=== PATIENT | male | born 1990 | race Two or more races ===

== ENCOUNTER 2021-03-20 18:33 | Inpatient (IN) | payer MEDICAID ==
[~2021-03-20] VITALS: Ht 170.2 cm; Wt 124.6 kg
[2021-03-20 23:25] LABS: Basophils # (auto) 0.1 10 ^3/uL (0-0.2); Eosinophils # (auto) 0.3 10 ^3/uL (0-0.8); Eosinophils % (auto) 2.4 % (0.0-7.0); Hematocrit 39.7 % (41.0-53.0); Hemoglobin 12.6 g/dL (13.5-17.5); Lymphocytes # (auto) 2.3 10 ^3/uL (0.4-5.4); Lymphocytes % (auto) 21.1 % (10.0-50.0); Mean Corpuscular Hemoglobin 28.2 pg (28.0-32.0); Mean Corpuscular Hgb Conc. 31.9 g/dL (32.0-36.0); Mean Corpuscular Volume 88.3 fL (80.0-100.0); Monocytes % (auto) 9.2 % (0.0-12.0); Neutrophils # (auto) 7.3 10 ^3/uL (1.6-8.6); Neutrophils % (auto) 66.3 % (37.0-80.0); Red Blood Cells 4.49 10^6/uL (4.5-5.90); Red Cell Distribution Width 17.2 % (11.8-14.3)
[2021-03-20 23:43] LABS: Albumin 3.4 g/dL (3.4-5.0); Calcium 8.2 mg/dL (8.5-10.1); Magnesium 2.8 mg/dL (1.6-2.6); Potassium 4.3 mmol/L (3.5-5.1)
[2021-03-20 23:49] LABS: BUN/Creatinine Ratio 16.3; Bilirubin, Total 0.8 mg/dL (0.2-1.0); Total Protein 6.8 g/dL (6.4-8.2)
[2021-03-21] MEDS ORDERED: IOHEXOL 350 MG/ML 100ML IJ ONE (01:14)
[2021-03-21] MEDS ORDERED: ASPirin 325 MG TAB PO ONE (04:15)
[2021-03-21 08:14] LABS: Urine Bacteria NONE SEEN /hpf (None Seen); Urine Blood Negative /uL (Negative); Urine Mucus FEW (None Seen); Urine WBC 2 /hpf (0 - 3)
[2021-03-21] MEDS ORDERED: MORPHINE SULFATE INJECTION 2 MG/ML SYRG IV PRN (10:00)
[2021-03-21] MEDS ORDERED: HYDROcodone-ACET 5/325MG TAB PO PRN (10:00)
[2021-03-21] MEDS ORDERED: ACETAMINOPHEN 325 MG TAB PO PRN (10:00)
[2021-03-21] MEDS ORDERED: ENOXAPARIN SOD 40 MG/0.4 ML SYRINGE SC SCH (10:00)
[2021-03-21] MEDS ORDERED: ONDANSETRON HCL 4 MG/2 ML VIAL IV PRN (10:00)
[2021-03-21] MEDS ORDERED: MORPHINE SULFATE 4 MG/ML SYR/VIAL IV PRN (10:00)
[2021-03-21] MEDS ORDERED: NITROGLYCERIN 0.4 MG SL TAB SL PRN (10:00)
[2021-03-21 13:00] VITALS: BP 117/58
[2021-03-21 13:20] VITALS: BP 117/58
[2021-03-21 13:58] LABS: Amphetamine Screen, Urine NEGATIVE (NEGATIVE); Barbiturate Scree,Urine NEGATIVE (NEGATIVE); Benzodiazephine Screen, Urine NEGATIVE (NEGATIVE); Cannabinoid Screen, Urine NEGATIVE (NEGATIVE); Cocaine Screen, Urine NEGATIVE (NEGATIVE); Opiate Scree,Urine NEGATIVE (NEGATIVE); Phencyclidine Screen, Urine NEGATIVE (NEGATIVE)
[2021-03-21] MEDS ORDERED: INFLUENZA QUAD 2021-2022 0.5 ML SYRG IM ONE (14:00)
[2021-03-21] MEDS: METOPROLOL TARTRATE 25 MG TAB PO SCH ×2 (14:23→22:15)
[2021-03-21] MEDS: ENOXAPARIN SOD 120 MG/0.8 ML SYRINGE SC SCH ×2 (14:24→22:15)
[2021-03-21] MEDS ORDERED: OPTISON 3ml Vial for INJ IV ONE (14:47)
[2021-03-21 17:00] VITALS: BP 125/73
[2021-03-21] MEDS: FUROSEMIDE 40 MG/4 ML VIAL IV SCH (18:14)
[2021-03-21 22:00] VITALS: BP 125/100
[2021-03-22 05:00] VITALS: BP 87/61
[2021-03-22] MEDS: FUROSEMIDE 40 MG/4 ML VIAL IV SCH ×2 (06:25→17:59)
[2021-03-22 07:53] LABS: Potassium 4.2 mmol/L (3.5-5.1)
[2021-03-22 07:54] LABS: Basophils # (auto) 0 10 ^3/uL (0-0.2); Basophils % (auto) 0.3 % (0.0-2.0); Eosinophils # (auto) 0.3 10 ^3/uL (0-0.8); Hematocrit 39.8 % (41.0-53.0); Hemoglobin 13.1 g/dL (13.5-17.5); Lymphocytes % (auto) 22.9 % (10.0-50.0); Mean Corpuscular Hemoglobin 28.7 pg (28.0-32.0); Mean Corpuscular Hgb Conc. 32.8 g/dL (32.0-36.0); Mean Corpuscular Volume 87.4 fL (80.0-100.0); Monocytes # (auto) 0.7 10 ^3/uL (0-1.3); Monocytes % (auto) 8.5 % (0.0-12.0); Neutrophils # (auto) 5.7 10 ^3/uL (1.6-8.6); Neutrophils % (auto) 65.3 % (37.0-80.0); Nucleated Red Blood Cells % 0.1 %; Red Blood Cells 4.55 10^6/uL (4.5-5.90); Red Cell Distribution Width 17.1 % (11.8-14.3); White Blood Cell 8.7 10^3/uL (4.4-10.8)
[2021-03-22 08:00] VITALS: BP 111/74
[2021-03-22 08:15] LABS: Albumin 3.5 g/dL (3.4-5.0); BUN/Creatinine Ratio 18.2; Bilirubin, Total 1.4 mg/dL (0.2-1.0); Calcium 8.8 mg/dL (8.5-10.1); Total Protein 6.6 g/dL (6.4-8.2)
[2021-03-22] MEDS: ASPirin-EC 81 mg tab PO SCH (09:39)
[2021-03-22] MEDS: METOPROLOL TARTRATE 25 MG TAB PO SCH ×2 (09:39→22:26)
[2021-03-22] MEDS: ENOXAPARIN SOD 120 MG/0.8 ML SYRINGE SC SCH ×2 (09:39→22:26)
[2021-03-22 12:00] VITALS: BP 117/56
[2021-03-22 16:00] VITALS: BP 105/76
[2021-03-22 22:00] VITALS: BP 95/58
[2021-03-22 22:20] VITALS: BP 100/71
[2021-03-23 05:00] VITALS: BP_SYST 113; BP_SYST 140; BP_DIAS 65; BP_DIAS 76
[2021-03-23] MEDS: FUROSEMIDE 40 MG/4 ML VIAL IV SCH ×2 (05:49→17:50)
[2021-03-23 08:50] VITALS: BP 90/52
[2021-03-23] MEDS: ENOXAPARIN SOD 120 MG/0.8 ML SYRINGE SC SCH ×2 (09:57→21:40)
[2021-03-23] MEDS: ASPirin-EC 81 mg tab PO SCH (09:57)
[2021-03-23] MEDS: METOPROLOL TARTRATE 25 MG TAB PO SCH ×2 (09:58→21:42)
[2021-03-23] MEDS: ENALAPRIL MALEATE 2.5 MG TAB PO SCH (09:58)
[2021-03-23 12:45] VITALS: BP 110/87
[2021-03-23 13:39] LABS: Calcium 9.3 mg/dL (8.5-10.1); Magnesium 2.9 mg/dL (1.6-2.6); Potassium 4.3 mmol/L (3.5-5.1)
[2021-03-23 13:41] LABS: BUN/Creatinine Ratio 15.5
[2021-03-23 18:07] VITALS: BP 135/47
[2021-03-23] MEDS ORDERED: ZOLPIDEM TARTRATE 5 MG TAB PO PRN ×2 (18:30→18:45)
[2021-03-23 21:12] VITALS: BP 92/52
[2021-03-24 05:00] VITALS: BP 103/60
[2021-03-24] MEDS: FUROSEMIDE 40 MG/4 ML VIAL IV SCH ×2 (06:09→17:43)
[2021-03-24 08:35] VITALS: BP 94/58
[2021-03-24] MEDS: METOPROLOL TARTRATE 25 MG TAB PO SCH ×2 (09:51→21:28)
[2021-03-24] MEDS: ASPirin-EC 81 mg tab PO SCH (09:51)
[2021-03-24] MEDS: ENOXAPARIN SOD 120 MG/0.8 ML SYRINGE SC SCH ×2 (09:52→21:25)
[2021-03-24] MEDS: ENALAPRIL MALEATE 2.5 MG TAB PO SCH (09:52)
[2021-03-24 12:25] VITALS: BP 102/48
[2021-03-24 14:35] VITALS: BP 104/60
[2021-03-24] MEDS ORDERED: METOPROLOL TARTRATE 1MG/1ML-5ML VIAL IV PRN (19:00)
[2021-03-24 22:00] VITALS: BP 105/54
[2021-03-25 05:00] VITALS: BP 105/78
[2021-03-25] MEDS: FUROSEMIDE 40 MG/4 ML VIAL IV SCH ×2 (06:06→17:31)
[2021-03-25 09:00] VITALS: BP 99/51
[2021-03-25] MEDS: METOPROLOL TARTRATE 25 MG TAB PO SCH (09:17)
[2021-03-25] MEDS: ASPirin-EC 81 mg tab PO SCH (09:17)
[2021-03-25] MEDS: ENOXAPARIN SOD 120 MG/0.8 ML SYRINGE SC SCH (09:17)
[2021-03-25] MEDS: ENALAPRIL MALEATE 2.5 MG TAB PO SCH (09:18)
[2021-03-25 13:00] VITALS: BP 147/72
[2021-03-25 16:38] VITALS: BP_SYST 115; BP_SYST 97; BP_DIAS 56; BP_DIAS 57
== END 2021-03-25 21:45 | disposition home or self-care (01) | DRG 201 ==
LOC: ER 18:33 → TELE 03-21 09:57 → TELE-WESTW 03-21 12:47
PROVIDERS: ADMIT Internal Medicine; ATTEND Internal Medicine Geriatric Medicine
DX: I48.0 Paroxysmal atrial fibrillation (principal); I50.23 Acute on chronic systolic (congestive) heart failure; I11.0 Hypertensive heart disease with heart failure; I42.9 Cardiomyopathy, unspecified; D72.829 Elevated white blood cell count, unspecified; E66.01 Morbid (severe) obesity due to excess calories; R59.0 Localized enlarged lymph nodes; F17.210 Nicotine dependence, cigarettes, uncomplicated; Z20.822 Contact with and (suspected) exposure to COVID-19; Z59.00 Homelessness unspecified; Z68.41 Body mass index [BMI] 40.0-44.9, adult; Z82.49 Family history of ischemic heart disease and other diseases of the circulatory system; Z83.3 Family history of diabetes mellitus; Z71.6 Tobacco abuse counseling; Z23 Encounter for immunization
CPT/HCPCS: 36415; 71045; 71275; 80048; 80053; 80307; 81001; 83735; 83880; 84443; 84484; 85025; 85379; 87426; 93005; 93306; 96374; 96375; G0378; Q9956

== ENCOUNTER 2021-08-16 09:17 | Inpatient (IN) | payer MEDICAID ==
[~2021-08-16] VITALS: Ht 170.2 cm; Wt 121.8 kg
[2021-08-16 10:27] LABS: Albumin 2.7 g/dL (3.4-5.0); Calcium 8.3 mg/dL (8.5-10.1); Magnesium 1.8 mg/dL (1.6-2.6); Potassium 4.5 mmol/L (3.5-5.1)
[2021-08-16 10:31] LABS: BUN/Creatinine Ratio 22.3; Bilirubin, Total 1.2 mg/dL (0.2-1.0); Total Protein 6.5 g/dL (6.4-8.2)
[2021-08-16 10:35] LABS: INR 1.27 (0.9-1.15); Partial Thromboplastin Time 23.5 sec (23.6-33.0)
[2021-08-16] MEDS ORDERED: FUROSEMIDE 40 MG/4 ML VIAL IV ONE (10:45)
[2021-08-16] MEDS ORDERED: dilTIAZem 25 MG/5 ML VIAL IV ONE (10:45)
[2021-08-16 11:43] LABS: Basophils # (auto) 0 10 ^3/uL (0-0.2); Basophils % (auto) 0.5 % (0.0-2.0); Eosinophils # (auto) 0.1 10 ^3/uL (0-0.8); Eosinophils % (auto) 0.8 % (0.0-7.0); Hematocrit 36.7 % (41.0-53.0); Hemoglobin 11.6 g/dL (13.5-17.5); Lymphocytes # (auto) 1.7 10 ^3/uL (0.4-5.4); Lymphocytes % (auto) 16.9 % (10.0-50.0); Mean Corpuscular Hemoglobin 27.1 pg (28.0-32.0); Mean Corpuscular Hgb Conc. 31.6 g/dL (32.0-36.0); Mean Corpuscular Volume 85.7 fL (80.0-100.0); Monocytes # (auto) 1.2 10 ^3/uL (0-1.3); Neutrophils # (auto) 6.8 10 ^3/uL (1.6-8.6); Neutrophils % (auto) 69.8 % (37.0-80.0); Red Blood Cells 4.28 10^6/uL (4.5-5.90); Red Cell Distribution Width 20.3 % (11.8-14.3); White Blood Cell 9.8 10^3/uL (4.4-10.8)
[2021-08-16] MEDS: MAGNESIUM SULFATE 1GM/100ML 100 ML IV SCH ×2 (13:25→16:23)
[2021-08-16] MEDS ORDERED: IOHEXOL 350 MG/ML 100ML IJ ONE (13:40)
[2021-08-16] MEDS ORDERED: AMIODARONE 450mg/250ml AE 250 ML IV SCH (17:15)
[2021-08-16] MEDS ORDERED: AMIODARONE HCL 150 MG in D5W 5% 100 ML IV ONE (17:15)
[2021-08-16] MEDS ORDERED: NITROGLYCERIN 0.4 MG SL TAB SL PRN (17:30)
[2021-08-16] MEDS ORDERED: HYDROcodone-ACET 5/325MG TAB PO PRN (17:30)
[2021-08-16] MEDS ORDERED: ONDANSETRON HCL 4 MG/2 ML VIAL IV PRN (17:30)
[2021-08-16] MEDS ORDERED: MORPHINE SULFATE INJ 2 MG/ml SYRG IV PRN (17:30)
[2021-08-16] MEDS: FUROSEMIDE 40 MG/4 ML VIAL IV SCH (18:01)
[2021-08-16 20:00] VITALS: BP 98/72
[2021-08-16 20:01] VITALS: BP 125/86
[2021-08-16 20:31] VITALS: BP 142/73
[2021-08-16 20:54] LABS: Alcohol, Urine < 3.0 mg/dL (0-10); Amphetamine Screen, Urine NEGATIVE (NEGATIVE); Barbiturate Scree,Urine NEGATIVE (NEGATIVE); Benzodiazephine Screen, Urine NEGATIVE (NEGATIVE); Cannabinoid Screen, Urine NEGATIVE (NEGATIVE); Cocaine Screen, Urine NEGATIVE (NEGATIVE); Opiate Scree,Urine NEGATIVE (NEGATIVE); Phencyclidine Screen, Urine NEGATIVE (NEGATIVE)
[2021-08-16 21:01] VITALS: BP 134/68
[2021-08-16] MEDS: ENOXAPARIN SOD 100 MG/1 ML SYRINGE SC SCH (21:05)
[2021-08-16] MEDS: METOPROLOL TARTRATE 25 MG TAB PO SCH (21:05)
[2021-08-16] MEDS: POTASSIUM CHL 20 Meq TABLET PO SCH (21:08)
[2021-08-16 22:01] VITALS: BP 123/97
[2021-08-16 23:01] VITALS: BP 132/87
[2021-08-17] VITALS (34 sets, daily range): BP systolic 90–143; BP diastolic 55–108
[2021-08-17 01:32] LABS: Urine Bacteria NONE SEEN /hpf (None Seen); Urine Blood Negative /uL (Negative); Urine Specific Gravity 1.018 (1.001-1.035); Urine WBC 1 /hpf (0 - 3)
[2021-08-17] MEDS: AMIODARONE 450mg/250ml AE 250 ML IV SCH ×3 (02:56→21:00)
[2021-08-17 04:55] LABS: INR 1.34 (0.9-1.15); Partial Thromboplastin Time 30.3 sec (23.6-33.0)
[2021-08-17 04:58] LABS: Calcium 8.2 mg/dL (8.5-10.1)
[2021-08-17 05:02] LABS: BUN/Creatinine Ratio 19.2
[2021-08-17] MEDS: FUROSEMIDE 40 MG/4 ML VIAL IV SCH ×2 (06:05→18:33)
[2021-08-17] MEDS: NITROGLYCERIN 2% OINT 1GM PKG TD SCH ×4 (06:36→11:30)
[2021-08-17] MEDS: NITROGLYCERIN 2% OINT 1GM PKG TD ONE (06:36)
[2021-08-17] MEDS ORDERED: OPTISON 3ml Vial for INJ IV ONE ×2 (10:17→10:30)
[2021-08-17] MEDS: POTASSIUM CHL 20 Meq TABLET PO SCH ×2 (10:29→21:54)
[2021-08-17] MEDS: FAMOTIDINE 20 MG TAB PO SCH (10:29)
[2021-08-17] MEDS: ASPirin-EC 81 mg tab PO SCH (10:29)
[2021-08-17] MEDS: METOPROLOL TARTRATE 25 MG TAB PO SCH ×3 (10:29→21:54)
[2021-08-17] MEDS: ENOXAPARIN SOD 100 MG/1 ML SYRINGE SC SCH (10:30)
[2021-08-17] MEDS ORDERED: SACU1TAB PO (18:58)
[2021-08-17] MEDS ORDERED: RIVA20TA PO (18:58)
[2021-08-17] MEDS ORDERED: METO25TA5 PO (18:58)
[2021-08-17] MEDS ORDERED: FURO40TA4 PO (18:58)
[2021-08-17] MEDS ORDERED: AMIO200T33 PO (18:58)
[2021-08-17] MEDS ORDERED: SPIR25TA8 PO (18:58)
[2021-08-17] MEDS ORDERED: DIVA250T4 PO (18:58)
[2021-08-17] MEDS ORDERED: ARIP1TAB7 PO (18:58)
[2021-08-17] MEDS ORDERED: NICOTINE 21MG/24 HR TOPICAL PATCH TD ONE (19:45)
[2021-08-17] MEDS ORDERED: IOHEXOL 300 MG/ML 100ML BOTTLE IJ ONE (20:47)
[2021-08-17] MEDS: APIXABAN 5 MG TAB PO SCH (21:54)
[2021-08-17] MEDS: SACUBITRIL-VALSARTAN 24mg/26mg TAB PO SCH (22:00)
[2021-08-18] VITALS (53 sets, daily range): BP systolic 95–155; BP diastolic 44–99
[2021-08-18] MEDS: AMIODARONE 450mg/250ml AE 250 ML IV SCH ×3 (04:30→07:20)
[2021-08-18 05:17] LABS: BUN/Creatinine Ratio 15.8; Magnesium 1.9 mg/dL (1.6-2.6); Potassium 3.7 mmol/L (3.5-5.1)
[2021-08-18] MEDS: FUROSEMIDE 40 MG/4 ML VIAL IV SCH ×2 (05:30→18:03)
[2021-08-18] MEDS: NICOTINE 21MG/24 HR TOPICAL PATCH TD SCH (10:10)
[2021-08-18] MEDS: POTASSIUM CHL 20 Meq TABLET PO SCH ×2 (10:11→21:24)
[2021-08-18] MEDS: FAMOTIDINE 20 MG TAB PO SCH (10:11)
[2021-08-18] MEDS: APIXABAN 5 MG TAB PO SCH ×2 (10:11→21:24)
[2021-08-18] MEDS: ASPirin-EC 81 mg tab PO SCH (10:12)
[2021-08-18] MEDS: METOPROLOL TARTRATE 25 MG TAB PO SCH ×2 (10:12→21:23)
[2021-08-18] MEDS ORDERED: FERR325T20 PO (11:49)
[2021-08-18] MEDS ORDERED: APIX5TAB PO (11:49)
[2021-08-18] MEDS ORDERED: ENAL2.5T11 PO (11:49)
[2021-08-18] MEDS ORDERED: CARV12.544 PO (11:49)
[2021-08-18] MEDS ORDERED: ASPI-543 PO (11:49)
[2021-08-18] MEDS ORDERED: AMOX500T86 PO (11:49)
[2021-08-18] MEDS ORDERED: ATOR20TA50 PO (11:49)
[2021-08-18] MEDS ORDERED: PANT40TA2 PO (11:49)
[2021-08-18] MEDS: SACUBITRIL-VALSARTAN 24mg/26mg TAB PO SCH ×2 (12:42→22:00)
[2021-08-18] MEDS ORDERED: PANTOPRAZOLE 40 MG/10 ML VIAL INJ IV ONE (12:45)
[2021-08-18] MEDS ORDERED: SUCRALFATE 1 GM/10 ML ORAL SUSP GT ONE (12:45)
[2021-08-18] MEDS ORDERED: LACTULOSE 20Gm/30ML SOLN PO ONE (13:30)
[2021-08-18] MEDS ORDERED: MORPHINE SULFATE INJ 2 MG/ml SYRG ONE (13:30)
[2021-08-18] MEDS ORDERED: THIAMINE 100mg/ml INJ (200mg/2ml VIAL) IV ONE (13:30)
[2021-08-18] MEDS ORDERED: MORPHINE SULFATE INJ 2 MG/ml SYRG IV PRN (13:30)
[2021-08-18] MEDS: SUCRALFATE 1 GM/10 ML ORAL SUSP GT SCH ×2 (16:55→21:23)
[2021-08-19] VITALS (15 sets, daily range): BP systolic 102–151; BP diastolic 52–79
[2021-08-19] MEDS: AMIODARONE 450mg/250ml AE 250 ML IV SCH ×2 (01:41→12:55)
[2021-08-19 04:32] LABS: Basophils # (auto) 0.1 10 ^3/uL (0-0.2); Basophils % (auto) 0.6 % (0.0-2.0); Eosinophils # (auto) 0.2 10 ^3/uL (0-0.8); Eosinophils % (auto) 1.4 % (0.0-7.0); Hematocrit 33.9 % (41.0-53.0); Hemoglobin 11.1 g/dL (13.5-17.5); Lymphocytes % (auto) 15.1 % (10.0-50.0); Mean Corpuscular Hemoglobin 27.3 pg (28.0-32.0); Mean Corpuscular Hgb Conc. 32.8 g/dL (32.0-36.0); Mean Corpuscular Volume 83.3 fL (80.0-100.0); Monocytes # (auto) 1.7 10 ^3/uL (0-1.3); Neutrophils # (auto) 9.2 10 ^3/uL (1.6-8.6); Neutrophils % (auto) 69.9 % (37.0-80.0); Nucleated Red Blood Cells % 0.1 %; Red Blood Cells 4.07 10^6/uL (4.5-5.90); Red Cell Distribution Width 19.7 % (11.8-14.3); White Blood Cell 13.1 10^3/uL (4.4-10.8)
[2021-08-19 04:52] LABS: Potassium 3.1 mmol/L (3.5-5.1)
[2021-08-19 04:58] LABS: Albumin 2.2 g/dL (3.4-5.0); BUN/Creatinine Ratio 16.9; Bilirubin, Total 1.2 mg/dL (0.2-1.0); Calcium 7.5 mg/dL (8.5-10.1); Total Protein 5.6 g/dL (6.4-8.2)
[2021-08-19] MEDS: SUCRALFATE 1 GM/10 ML ORAL SUSP GT SCH ×4 (06:26→21:48)
[2021-08-19] MEDS: FUROSEMIDE 40 MG/4 ML VIAL IV SCH ×2 (06:26→18:15)
[2021-08-19] MEDS: NICOTINE 21MG/24 HR TOPICAL PATCH TD SCH (10:00)
[2021-08-19] MEDS ORDERED: PANTOPRAZOLE 40 MG/10 ML VIAL INJ IV SCH (10:00)
[2021-08-19] MEDS ORDERED: THIAMINE 100mg/ml INJ (200mg/2ml VIAL) IV SCH (10:00)
[2021-08-19] MEDS: APIXABAN 5 MG TAB PO SCH ×2 (10:43→21:48)
[2021-08-19] MEDS: FAMOTIDINE 20 MG TAB PO SCH (10:43)
[2021-08-19] MEDS: POTASSIUM CHL 20 Meq TABLET PO SCH ×2 (10:44→21:49)
[2021-08-19] MEDS: METOPROLOL TARTRATE 25 MG TAB PO SCH ×2 (10:44→21:50)
[2021-08-19] MEDS: AMIODARONE HCL 200 MG TAB PO SCH ×2 (10:47→21:48)
[2021-08-19] MEDS: SACUBITRIL-VALSARTAN 24mg/26mg TAB PO SCH ×2 (10:53→21:49)
[2021-08-19] MEDS ORDERED: POTASSIUM CHL 20 Meq TABLET PO ONE (14:15)
[2021-08-20 04:50] VITALS: BP 98/72
[2021-08-20 05:35] VITALS: BP 107/59
[2021-08-20] MEDS: AMIODARONE 450mg/250ml AE 250 ML IV SCH (05:37)
[2021-08-20] MEDS: FUROSEMIDE 40 MG/4 ML VIAL IV SCH ×2 (05:37→17:58)
[2021-08-20] MEDS: SUCRALFATE 1 GM/10 ML ORAL SUSP GT SCH ×4 (05:50→21:37)
[2021-08-20 06:41] LABS: BUN/Creatinine Ratio 13.3; Calcium 7.8 mg/dL (8.5-10.1); Potassium 3.1 mmol/L (3.5-5.1)
[2021-08-20 06:51] LABS: Basophils # (auto) 0 10 ^3/uL (0-0.2); Basophils % (auto) 0.3 % (0.0-2.0); Eosinophils # (auto) 0.2 10 ^3/uL (0-0.8); Hematocrit 36.9 % (41.0-53.0); Hemoglobin 12.3 g/dL (13.5-17.5); Lymphocytes # (auto) 2.3 10 ^3/uL (0.4-5.4); Lymphocytes % (auto) 19.7 % (10.0-50.0); Mean Corpuscular Hemoglobin 27.7 pg (28.0-32.0); Mean Corpuscular Hgb Conc. 33.2 g/dL (32.0-36.0); Mean Corpuscular Volume 83.5 fL (80.0-100.0); Monocytes # (auto) 1.1 10 ^3/uL (0-1.3); Monocytes % (auto) 9.4 % (0.0-12.0); Neutrophils # (auto) 7.9 10 ^3/uL (1.6-8.6); Neutrophils % (auto) 68.6 % (37.0-80.0); Nucleated Red Blood Cells % 0.1 %; Red Blood Cells 4.42 10^6/uL (4.5-5.90); Red Cell Distribution Width 19.8 % (11.8-14.3); White Blood Cell 11.5 10^3/uL (4.4-10.8)
[2021-08-20] MEDS: POTASSIUM CHL 20MEQ/100ML 100 ML IV SCH ×2 (08:00→13:00)
[2021-08-20 08:30] VITALS: BP 117/77
[2021-08-20] MEDS: AMIODARONE HCL 200 MG TAB PO SCH ×2 (10:00→21:37)
[2021-08-20] MEDS: NICOTINE 21MG/24 HR TOPICAL PATCH TD SCH (10:00)
[2021-08-20] MEDS ORDERED: FAMO-12 PO (10:11)
[2021-08-20] MEDS ORDERED: APIX5TAB PO (10:11)
[2021-08-20] MEDS ORDERED: SACU1TAB PO (10:11)
[2021-08-20] MEDS ORDERED: CAR3125T PO (10:11)
[2021-08-20] MEDS ORDERED: SPIR25TA PO (10:11)
[2021-08-20] MEDS ORDERED: AMIO200T43 PO (10:11)
[2021-08-20] MEDS ORDERED: POTA1TAB4 PO (10:11)
[2021-08-20] MEDS ORDERED: SUCR1SUS10 GT (10:11)
[2021-08-20] MEDS ORDERED: FURO1TAB31 PO (10:11)
[2021-08-20] MEDS: THIAMINE HCL 100 MG TAB PO SCH (10:27)
[2021-08-20] MEDS: SACUBITRIL-VALSARTAN 24mg/26mg TAB PO SCH ×2 (10:31→21:38)
[2021-08-20] MEDS: SPIRONOLACTONE 25 MG TAB PO SCH (10:31)
[2021-08-20] MEDS: CARVEDILOL 3.125 MG TAB PO SCH ×2 (10:32→21:38)
[2021-08-20] MEDS: FAMOTIDINE 20 MG TAB PO SCH (10:33)
[2021-08-20] MEDS: APIXABAN 5 MG TAB PO SCH ×2 (10:38→21:38)
[2021-08-20] MEDS: POTASSIUM CHL 20 Meq TABLET PO SCH ×2 (10:41→21:39)
[2021-08-20 12:02] VITALS: BP 117/77
[2021-08-20 16:30] VITALS: BP 144/92
[2021-08-20 22:00] VITALS: BP 113/70
[2021-08-21 05:00] VITALS: BP 101/66
[2021-08-21] MEDS: SUCRALFATE 1 GM/10 ML ORAL SUSP GT SCH ×4 (05:59→21:48)
[2021-08-21] MEDS: FUROSEMIDE 40 MG/4 ML VIAL IV SCH ×2 (05:59→21:51)
[2021-08-21 08:30] VITALS: BP 120/60
[2021-08-21] MEDS: AMIODARONE HCL 200 MG TAB PO SCH ×2 (10:00→21:49)
[2021-08-21] MEDS: THIAMINE HCL 100 MG TAB PO SCH (10:00)
[2021-08-21] MEDS: NICOTINE 21MG/24 HR TOPICAL PATCH TD SCH (10:00)
[2021-08-21] MEDS: SPIRONOLACTONE 25 MG TAB PO SCH (10:13)
[2021-08-21] MEDS: CARVEDILOL 3.125 MG TAB PO SCH ×2 (10:13→21:50)
[2021-08-21] MEDS: APIXABAN 5 MG TAB PO SCH ×2 (10:14→21:49)
[2021-08-21] MEDS: FAMOTIDINE 20 MG TAB PO SCH (10:14)
[2021-08-21] MEDS: POTASSIUM CHL 20 Meq TABLET PO SCH ×2 (10:14→21:50)
[2021-08-21] MEDS: SACUBITRIL-VALSARTAN 24mg/26mg TAB PO SCH ×2 (10:15→21:50)
[2021-08-21 22:00] VITALS: BP 117/64
[2021-08-22 05:00] VITALS: BP 90/48
[2021-08-22] MEDS: FUROSEMIDE 40 MG/4 ML VIAL IV SCH ×2 (06:00→18:00)
[2021-08-22] MEDS: SUCRALFATE 1 GM/10 ML ORAL SUSP GT SCH ×4 (06:34→22:04)
[2021-08-22 08:00] VITALS: BP 123/60
[2021-08-22 08:03] LABS: Basophils # (auto) 0.1 10 ^3/uL (0-0.2); Basophils % (auto) 0.6 % (0.0-2.0); Eosinophils # (auto) 0.3 10 ^3/uL (0-0.8); Eosinophils % (auto) 3.1 % (0.0-7.0); Hematocrit 40.5 % (41.0-53.0); Hemoglobin 12.9 g/dL (13.5-17.5); Lymphocytes # (auto) 2.1 10 ^3/uL (0.4-5.4); Mean Corpuscular Hemoglobin 26.8 pg (28.0-32.0); Mean Corpuscular Hgb Conc. 31.9 g/dL (32.0-36.0); Mean Corpuscular Volume 83.9 fL (80.0-100.0); Monocytes # (auto) 0.7 10 ^3/uL (0-1.3); Neutrophils # (auto) 5.8 10 ^3/uL (1.6-8.6); Neutrophils % (auto) 65.3 % (37.0-80.0); Red Blood Cells 4.83 10^6/uL (4.5-5.90); Red Cell Distribution Width 19.7 % (11.8-14.3); White Blood Cell 8.9 10^3/uL (4.4-10.8)
[2021-08-22 08:33] LABS: BUN/Creatinine Ratio 12.5; Calcium 8.4 mg/dL (8.5-10.1)
[2021-08-22] MEDS: NICOTINE 21MG/24 HR TOPICAL PATCH TD SCH (10:00)
[2021-08-22] MEDS: FAMOTIDINE 20 MG TAB PO SCH (10:01)
[2021-08-22] MEDS: SPIRONOLACTONE 25 MG TAB PO SCH (10:02)
[2021-08-22] MEDS: POTASSIUM CHL 20 Meq TABLET PO SCH ×2 (10:02→22:06)
[2021-08-22] MEDS: SACUBITRIL-VALSARTAN 24mg/26mg TAB PO SCH ×2 (10:02→22:13)
[2021-08-22] MEDS: APIXABAN 5 MG TAB PO SCH ×2 (10:02→22:13)
[2021-08-22] MEDS: THIAMINE HCL 100 MG TAB PO SCH (10:02)
[2021-08-22] MEDS: CARVEDILOL 3.125 MG TAB PO SCH ×2 (10:03→22:10)
[2021-08-22] MEDS: AMIODARONE HCL 200 MG TAB PO SCH ×2 (10:04→22:12)
[2021-08-22 12:00] VITALS: BP 91/64
[2021-08-22 13:18] VITALS: BP 117/77
[2021-08-22 16:00] VITALS: BP 101/70
[2021-08-22 22:00] VITALS: BP 121/79
[2021-08-23 05:00] VITALS: BP 91/52
[2021-08-23] MEDS: FUROSEMIDE 40 MG/4 ML VIAL IV SCH ×2 (05:37→18:00)
[2021-08-23] MEDS: SUCRALFATE 1 GM/10 ML ORAL SUSP GT SCH ×3 (07:38→17:00)
[2021-08-23 08:00] VITALS: BP 100/49
[2021-08-23] MEDS: SPIRONOLACTONE 25 MG TAB PO SCH (09:57)
[2021-08-23] MEDS: AMIODARONE HCL 200 MG TAB PO SCH (09:57)
[2021-08-23] MEDS: THIAMINE HCL 100 MG TAB PO SCH (09:57)
[2021-08-23] MEDS: APIXABAN 5 MG TAB PO SCH (09:58)
[2021-08-23] MEDS: POTASSIUM CHL 20 Meq TABLET PO SCH (09:58)
[2021-08-23] MEDS: SACUBITRIL-VALSARTAN 24mg/26mg TAB PO SCH (09:58)
[2021-08-23] MEDS: CARVEDILOL 3.125 MG TAB PO SCH (09:58)
[2021-08-23] MEDS: FAMOTIDINE 20 MG TAB PO SCH (09:59)
[2021-08-23] MEDS: NICOTINE 21MG/24 HR TOPICAL PATCH TD SCH (09:59)
[2021-08-23 12:00] VITALS: BP 104/68
== END 2021-08-23 16:40 | disposition home or self-care (01) | DRG 194 ==
LOC: ER 09:17 → EDBD 09:17 → ICU WEST 17:17 → TELE-CENTR 08-19 18:19
PROVIDERS: ADMIT Hospitalist; ATTEND Internal Medicine Pulmonary Disease
PROC: 05HB33Z Insertion of Infusion Device into Right Basilic Vein, Percutaneous Approach (ICD-10-PCS; principal; 2021-08-17)
PROC: B54MZZA Ultrasonography of Right Upper Extremity Veins, Guidance (ICD-10-PCS; 2021-08-17)
PROC: 5A09357 Assistance with Respiratory Ventilation, Less than 24 Consecutive Hours, Continuous Positive Airway Pressure (ICD-10-PCS; 2021-08-19)
PROC: 5A09357 Assistance with Respiratory Ventilation, Less than 24 Consecutive Hours, Continuous Positive Airway Pressure (ICD-10-PCS; 2021-08-20)
DX: I11.0 Hypertensive heart disease with heart failure (principal); J96.01 Acute respiratory failure with hypoxia; E44.0 Moderate protein-calorie malnutrition; D68.69 Other thrombophilia; R18.8 Other ascites; I42.0 Dilated cardiomyopathy; I48.91 Unspecified atrial fibrillation; I42.7 Cardiomyopathy due to drug and external agent; I50.23 Acute on chronic systolic (congestive) heart failure; D64.9 Anemia, unspecified; E66.01 Morbid (severe) obesity due to excess calories; E87.6 Hypokalemia; F17.210 Nicotine dependence, cigarettes, uncomplicated; F31.9 Bipolar disorder, unspecified; R59.0 Localized enlarged lymph nodes; Z20.822 Contact with and (suspected) exposure to COVID-19; E04.1 Nontoxic single thyroid nodule; K76.0 Fatty (change of) liver, not elsewhere classified; R79.89 Other specified abnormal findings of blood chemistry; F19.10 Other psychoactive substance abuse, uncomplicated; Z79.01 Long term (current) use of anticoagulants; Z79.899 Other long term (current) drug therapy; Z68.41 Body mass index [BMI] 40.0-44.9, adult; Z83.3 Family history of diabetes mellitus; Z82.49 Family history of ischemic heart disease and other diseases of the circulatory system; Z86.711 Personal history of pulmonary embolism; Z59.00 Homelessness unspecified; Z91.14 Patient's other noncompliance with medication regimen
CPT/HCPCS: 36415; 71045; 71275; 74178; 76705; 80048; 80053; 80307; 81001; 83615; 83690; 83735; 83880; 84443; 84484; 85025; 85379; 85610; 85730; 87040; 87081; 93005; 93306; 96365; 96366; 96368; 96375; 99291; C9113; G0378; J2405; J3480; J7060; Q9956